=== PATIENT | male | born 1960 | race Caucasian/White ===

== ENCOUNTER 2021-11-06 08:26 | Outpatient (CLI) | payer MEDICARE, SELFPAY ==
[2021-11-06 08:41] LABS: Lipase 112 U/L (73-393)
== END 2021-11-06 23:59 | disposition home or self-care (01) ==
PROVIDERS: Visit Provider Family Medicine
DX: R10.13 Epigastric pain (principal)
CPT/HCPCS: 83690

== ENCOUNTER → 2023-02-12 | Outpatient (CLI) | payer MEDICARE, SELFPAY ==
[2023-02-12 12:57] VITALS: BP 141/97; PULSE 50; RESP 16; TEMP 36.3; O2SAT 95; BMI 28.8
--- NOTE | 2023-02-12 13:13 | CT_ITS ---
STUDY: CT CHEST WITH CONTRAST REASON FOR EXAM: Male, 62 years old. SCREENING FOR CARDIOVASCULAR DISORDERS. Cardiac repeat examination. RADIATION DOSAGE (If Supplied By Facility): CTDIvol = ( 34.36 ) mGy, DLP = ( 1234.17 ) mGycm TECHNIQUE: Transaxial imaging was performed following intravenous administration of IV-100 mL IsoVue 370. Individualized dose optimization techniques were used for this CT. COMPARISON: No relevant priors. FINDINGS: CHEST The lungs are normal. There is no demonstrated pleural abnormality. Normal heart and pericardium. There are multiple small lymph nodes within the mediastinum, which are normal in size and morphology most compatible with reactive lymph hyperplasia. Calcified right hilar lymph nodes. Normal unenhanced pulmonary arteries. Normal aorta arch and descending thoracic aorta. Normal osseous structures. There is no demonstrated abnormality of the visualized upper abdomen. CT/Limited Chest CT Cardiac Only IMPRESSION: Normal enhanced CT chest examination. Electronically Signed: Antoine Lozano MD at 8:27 EDT ,
[2023-02-12 13:25] VITALS: BP 134/84; PULSE 48
[2023-02-12] MEDS: Nitroglycerin SL (ED/IMG/CATH) 0.4 MG TABLET SL (13:25)
[2023-02-12 13:30] VITALS: BP 146/89; PULSE 58; RESP 16; O2SAT 95
--- NOTE | 2023-02-13 12:10 | CCTA.WCONT ---
CCTA w/Cont Coronary Arteries Date of Study:: 02/13/23 Chest pain LEFT MAIN CORONARY ARTERY: Left main coronary artery arose from the left coronary cusp and bifurcating to left anterior descending artery and left circumflex artery. No significant stenosis was noted LEFT ANTERIOR DESCENDING CORONARY ARTERY: There was evidence of mild and heart plaque noted in the proximal third but with no obstructive lesions. The vessel continued towards the apex of the ventricle. A diagonal vessel was seen. LEFT CIRCUMFLEX CORONARY ARTERY: This was a nondominant vessel with no significant atherosclerotic plaquing noted. RIGHT CORONARY ARTERY: This was a large dominant vessel with a focal area of calcification in the proximal region nonobstructive and the rest of the vessel continued giving off an acute marginal and then terminating with the bifurcation to the posterior descending artery and posterolateral vessel. AORTIC VALVE: Trileaflet valve LEFT VENTRICLE: Normal ventricle Conclusion: CT angiogram demonstrating nonobstructive atherosclerotic plaquing noted in the left anterior descending artery.
[2023-02-16 12:12] LABS: CREATININE FINGERSTICK 1.1 mg/dL (0.70-1.30); EGFR FINGERSTICK > 60 mL/min (>60)
== END | disposition home or self-care (01) ==
PROVIDERS: PCP Family Medicine
DX: R07.9 Chest pain, unspecified (principal); Z13.6 Encounter for screening for cardiovascular disorders
CPT/HCPCS: 75574; 76380; Q9967